=== PATIENT | male | born 1970 | race African-American/Black ===

== ENCOUNTER 2016-05-28 03:00 | Emergency (ER) | payer OTHER ==
--- NOTE | ~2016-05-28 | CT4 ---
[facility] A Service of [facility] & [facility] RADIOLOGY TEXT RESULTS PATIENT: BART OHRAN LOCATION: SED : 74 UNIT #: [id number] AGE: [address]: Gus Coyle MD SEX: M ORDER DR: [id number] [place] [address] [id number] E MR#: [id number] Acc #: [id number] NAME: BART HORAN : 1970 SEX: M STUDY DATE/TIME: 05/28/2016 3:10 UNIT: SED ROOM: STUDY DESCRIPTION: CT Abd and Pelv Wo Cont Attending Physician: Gus Coyle M.D. Ordering Physician: Gus Coyle M.D. Primary Care Physician: Primary Care Physician No MEDICAL IMAGING REPORT This report is preliminary unless electronic signature is present. EXAM CT abdomen and pelvis without contrast INDICATION Left kidney and groin pain radiating to low back for about 1 hour. COMPARISON 04/30/2010. TECHNIQUE Axial 3 mm images were obtained through the abdomen and pelvis without IV or oral contrast. This CT examination was performed with one or more of the following radiation dose reduction techniques: automatic exposure control, adjustment of mA and/or kV according to patient size, and iterative reconstruction. FINDINGS The lung bases are clear. The study is degraded by motion. The liver, gallbladder, spleen, pancreas, adrenal glands and right kidney are normal. There is mild left hydronephrosis and the left ureter is slightly dilated. There are 2 calcifications in the pelvis that are stable from 04/30/2010 and therefore they represent phleboliths. There may be a third calcification representing a distal ureteral stone measuring about 2 mm in diameter. Below that point, the ureter is normal in caliber. The bladder and prostate gland are normal. The aorta is normal in size and the bowel is unremarkable. The bones are unremarkable. IMPRESSION There is clearly mild left hydronephrosis and most of the left ureter is dilated. The study is degraded by motion. Images through the pelvis do show 2 left-sided calcifications that are clearly phleboliths since they were present in 2010. There may be a third calcification in the distal [facility] A Service of [facility] & [facility] RADIOLOGY TEXT RESULTS PATIENT: BART HORAN LOCATION: SED : 74 UNIT #: [id number] AGE: [address]: Gus Coyle MD SEX: M ORDER DR: left ureter representing a 2 mm stone. Otherwise, the study is normal. Dictated by... Shane Saha M.D. THIS IS AN ELECTRONICALLY VERIFIED REPORT Shane Saha M.D. at 05/28/2016 2:21 PM RIC/meera TD: 05/28/2016 06:16 JOB #: [id number] MEDICAL IMAGING REPORT Page 1 of 1
[2016-05-28 02:43] LABS: URINE SOURCE CLEAN CATCH
[2016-05-28 02:45] LABS: URINE APPEARANCE CLEAR; URINE BILIRUBIN NEG (NEG); URINE BLOOD 3+ (NEG); URINE COLOR YELLOW; URINE GLUCOSE NEG (NORM); URINE KETONE NEG (NEG); URINE LEUKOCYTE ESTERASE NEG (NEG); URINE NITRATE NEG (NEG); URINE PH 6.5 (5-8); URINE PROTEIN NEG (NEG); URINE SPECIFIC GRAVITY <=1.005 (1.003-1.035); URINE UROBILINOGEN 0.2 MG/DL (NORM)
[2016-05-28 02:46] LABS: BASOPHIL% 0.4 % (0-2.5); EOSINOPHIL# 0.1 X10e3 (0-0.7); EOSINOPHIL% 1.2 % (0.0-7.0); HEMATOCRIT 42.9 % (38.0-50.0); HEMOGLOBIN 14.4 gm/dL (13.0-16.0); LYMPHOCYTE# 2.5 X10e3 (1.0-3.5); LYMPHOCYTE% 23.2 % (17.0-45.0); MEAN CELL VOLUME 94.8 FL (83-96); MEAN CORPUSCULAR HEMOGLOBIN 31.8 PG (28-34); MEAN CORPUSCULAR HGB CONC 33.6 g/dL (30-36); MEAN PLATELET VOLUME 8.8 FL (6.5-11.5); MONOCYTE# 0.8 X10e3 (0-1.0); MONOCYTE% 7.3 % (3.0-12.0); NEUTROPHIL# 7.3 X10e3 (1.5-7.1); NEUTROPHIL% 67.9 % (40-75); PLATELET COUNT 210 X10e3 (140-420); RED BLOOD COUNT 4.52 X10e (3.90-5.60); RED CELL DISTRIBUTION WIDTH 13.7 % (11.0-15.5); WHITE BLOOD COUNT 10.7 X10e3 (4.0-10.5)
[2016-05-28 02:47] LABS: MICRO INDICATED? YES
[2016-05-28 02:47] LABS: DIFF IND NO
[2016-05-28 02:49] LABS: CULTURE INDICATED? NO; URINE BACTERIA NEG (NEG); URINE MUCUS PRESENT; URINE RBC 100-200 /[HPF] (0-2); URINE SQUAMOUS EPITHELIAL CELL FEW /[HPF]; URINE WBC 0-2 /[HPF] (0-5)
[~2016-05-28 03:00] MED LIST: ALBUTEROL17 GM INH; GUAIFENESIN200 MG PO; NO MEDICATIONS; PREDNISONE PO
[2016-05-28 03:01] LABS: CALCIUM SERUM 9.2 mg/dL (8.4-10.2); GLOM FILT RATE Estimated 106.4 mL/min (>60)
== END 2016-05-28 04:22 | disposition home or self-care (01) ==
LOC: SED 03:00
PROVIDERS: Emergency Medicine
DX: N13.2 Hydronephrosis with renal and ureteral calculous obstruction (principal); F17.210 Nicotine dependence, cigarettes, uncomplicated
CPT/HCPCS: 36415; 74176; 80048; 81003; 85025; 96361; 96374; 96375; 99284; J1885; J2270

== ENCOUNTER 2016-07-07 10:30 | Emergency (ER) | payer OTHER ==
--- NOTE | ~2016-07-07 | CT4 ---
[facility] A Service of [facility] RADIOLOGY TEXT RESULTS PATIENT: BART HORAN LOCATION: [facility] : [birth year] UNIT #: [id number] AGE: [address]: Connie Sharma MD SEX: M ORDER DR: [id number] [place] [id number] [facility]. [place], [place] [address] [id number] E MR#: [id number] Acc #: [id number] NAME: BART HORAN : 1970 SEX: M STUDY DATE/TIME: 07/07/2016 11:28 UNIT: [facility] ROOM: STUDY DESCRIPTION: CT Abd and Pelv Wo Cont Attending Physician: Connie Sharma M.D. Ordering Physician: Connie Sharma M.D. MEDICAL IMAGING REPORT This report is preliminary unless electronic signature is present EXAM CT of the abdomen and pelvis without contrast INDICATIONS Right flank pain for [address] of the abdomen and pelvis performed without contrast. Coronal and sagittal reformatted images were obtained. This CT exam was performed with one or more of the following radiation dose reduction techniques: automatic exposure control, adjustment of mA and/or kV according to patient size, and iterative reconstruction. COMPARISON 05/28/2016. FINDINGS Calcified granuloma left base. The liver is unremarkable. The gallbladder and spleen are unremarkable. There are no renal stones or hydronephrosis. The adrenal glands and pancreas are unremarkable. PELVIS: The appendix is normal. Scattered diverticula within the colon but no diverticulitis. No free fluid. Bone windows are unremarkable. IMPRESSION 1. No acute intraabdominal or pelvic abnormality. 2. No evidence of renal stone. 3. Normal appendix. [facility] A Service of [facility] RADIOLOGY TEXT RESULTS PATIENT: BART HORAN LOCATION: [facility] : 74 UNIT #: [id number] AGE: [address]: Connie Sharma MD SEX: M ORDER DR: Dictated by... Candido Ellis M.D. THIS IS AN ELECTRONICALLY VERIFIED REPORT Candido Ellis M.D. at 07/09/2016 7:49 AM TILA/fabby TD: 07/07/2016 14:59 JOB #: [id number] MEDICAL IMAGING REPORT Page 1 of 1 COPY
[2016-07-07 11:23] LABS: BASOPHIL% 0.4 % (0-2.5); EOSINOPHIL# 0.2 X10e3 (0-0.7); EOSINOPHIL% 2.2 % (0.0-7.0); HEMATOCRIT 44.8 % (38.0-50.0); HEMOGLOBIN 14.8 gm/dL (13.0-16.0); LYMPHOCYTE# 2.8 X10e3 (1.0-3.5); LYMPHOCYTE% 30.9 % (17.0-45.0); MEAN CELL VOLUME 94.2 FL (83-96); MEAN CORPUSCULAR HEMOGLOBIN 31.1 PG (28-34); MEAN PLATELET VOLUME 8.3 FL (6.5-11.5); MONOCYTE# 0.8 X10e3 (0-1.0); MONOCYTE% 8.6 % (3.0-12.0); NEUTROPHIL# 5.2 X10e3 (1.5-7.1); NEUTROPHIL% 57.9 % (40-75); PLATELET COUNT 210 X10e3 (140-420); RED BLOOD COUNT 4.76 X10e (3.90-5.60); RED CELL DISTRIBUTION WIDTH 13.6 % (11.0-15.5); WHITE BLOOD COUNT 8.9 X10e3 (4.0-10.5)
[2016-07-07 11:30] LABS: DIFF IND NO
[2016-07-07 11:53] LABS: BUN/CREATININE RATIO 14.44; CREATININE SERUM 0.9 mg/dL (0.6-1.4); GLOM FILT RATE Estimated 120.8 mL/min (>60); POTASSIUM 4.5 mmol/L (3.5-5.1)
[2016-07-07 12:52] LABS: URINE SOURCE CLEAN CATCH
[2016-07-07 12:59] LABS: URINE APPEARANCE CLEAR; URINE BILIRUBIN NEG (NEG); URINE BLOOD NEG (NEG); URINE COLOR YELLOW; URINE GLUCOSE NEG (NEG); URINE KETONE NEG (NEG); URINE LEUKOCYTE ESTERASE NEG (NEG); URINE NITRATE NEG (NEG); URINE PROTEIN NEG (NEG); URINE SPECIFIC GRAVITY 1.022 (1.003-1.035); URINE UROBILINOGEN 0.2 MG/DL (NEG)
[2016-07-07 13:03] LABS: CULTURE INDICATED? NO
== END 2016-07-07 13:42 | disposition home or self-care (01) ==
LOC: CED 10:30 → SED 11:46 → CED 11:46
PROVIDERS: Emergency Medicine
DX: S39.012A Strain of muscle, fascia and tendon of lower back, initial encounter (principal); I10 Essential (primary) hypertension; X58.XXXA Exposure to other specified factors, initial encounter
CPT/HCPCS: 36415; 74176; 80048; 81003; 85025; 96361; 96374; 96375; 96376; 99284; J1885; J2270; J2405

== ENCOUNTER 2016-07-22 10:21 | Emergency (ER) | payer OTHER ==
[2016-07-22] MEDS ORDERED: MULTIVITAMINS1 EAC4 (10:24)
[2016-07-22] MEDS ORDERED: FISH OIL300 MG PO (10:24)
== END 2016-07-22 11:24 | disposition home or self-care (01) ==
LOC: SED 10:21
DX: M54.32 Sciatica, left side (principal); F17.200 Nicotine dependence, unspecified, uncomplicated; Z87.442 Personal history of urinary calculi
CPT/HCPCS: 99283; J1885

== ENCOUNTER 2016-07-29 08:29 | Emergency (ER) | payer OTHER ==
--- NOTE | ~2016-07-29 | CT4 ---
[facility] A Service of [facility] RADIOLOGY TEXT RESULTS PATIENT: BART HORAN LOCATION: SED : 74 UNIT #: [id number] AGE: [address]: Fredy Guerrero MD SEX: M ORDER DR: [id number] [place] [address] [id number] E MR#: [id number] Acc #: [id number] NAME: BART HORAN : 1970 SEX: M STUDY DATE/TIME: 07/29/2016 9:21 UNIT: SED ROOM: STUDY DESCRIPTION: CT Abd and Pelv Wo Cont Attending Physician: Fredy Guerrero M.D. Ordering Physician: Fredy Guerrero M.D. Primary Care Physician: No Primary Care Physician MEDICAL IMAGING REPORT This report is preliminary unless electronic signature is present. EXAM CT of the abdomen and pelvis without contrast. INDICATIONS Right flank pain since this morning. TECHNIQUE CT of the abdomen and pelvis was performed without contrast. Renal stone protocol. Coronal and sagittal reformatted images were obtained. This CT exam was performed with one or more of the following radiation dose reduction techniques: Automatic exposure control, adjustment of mA and/or kV according to patient size, and iterative reconstruction. COMPARISON Comparison is made with 07/07/16. FINDINGS There is atelectasis in the right base. The liver, gallbladder and spleen are unremarkable. The left kidney is unremarkable. There is very mild right hydronephrosis. There is a punctate calcific density in the proximal/mid right ureter on image 91 which I believe represents a tiny stone. The adrenal glands and pancreas are unremarkable. Pelvis: There is no free fluid. Scattered colonic diverticula. Normal appendix. The remainder of the pelvis is unremarkable. Bone windows are unremarkable. IMPRESSION There is very mild right hydronephrosis and there is a punctate calcific density in the proximal/mid right ureter which I believe represents a tiny stone given the patient's mild hydro and clinical symptoms. [facility] A Service of [facility] RADIOLOGY TEXT RESULTS PATIENT: BART HORAN LOCATION: SED : 74 UNIT #: [id number] AGE: [address]: Fredy Guerrero MD SEX: M ORDER DR: Dictated by... Candido Ellis M.D. THIS IS AN ELECTRONICALLY VERIFIED REPORT Candido Ellis M.D. at 07/29/2016 6:05 PM ARS/bd TD: 07/29/2016 14:13 JOB #: [id number] MEDICAL IMAGING REPORT Page 1 of 1
[~2016-07-29 08:29] MED LIST changes: +FISH OIL300 MG PO; +MULTIVITAMINS1 EAC4
[2016-07-29] MEDS ORDERED: IBUPROFEN (08:34)
[2016-07-29 09:28] LABS: BUN/CREATININE RATIO 17.77; CALCIUM SERUM 8.8 mg/dL (8.4-10.2); CREATININE SERUM 0.9 mg/dL (0.6-1.4); GLOM FILT RATE Estimated 120.8 mL/min (>60); POTASSIUM 3.8 mmol/L (3.5-5.1)
[2016-07-29 11:03] LABS: URINE SOURCE CLEAN CATCH
[2016-07-29 11:04] LABS: MICRO INDICATED? YES; URINE APPEARANCE HAZY; URINE BILIRUBIN NEG (NEG); URINE BLOOD 3+ (NEG); URINE COLOR DK YELLOW; URINE GLUCOSE NEG (NORM); URINE KETONE NEG (NEG); URINE LEUKOCYTE ESTERASE NEG (NEG); URINE NITRATE NEG (NEG); URINE PH 5.5 (5-8); URINE PROTEIN TRACE (NEG); URINE SPECIFIC GRAVITY >=1.030 (1.003-1.035)
[2016-07-29 11:07] LABS: CULTURE INDICATED? YES; URINE BACTERIA NEG (NEG); URINE MUCUS PRESENT; URINE RBC INNUM /[HPF] (0-2); URINE SQUAMOUS EPITHELIAL CELL FEW /[HPF]
== END 2016-07-29 11:14 | disposition home or self-care (01) ==
LOC: SED 08:29
PROVIDERS: Emergency Medicine
DX: N13.2 Hydronephrosis with renal and ureteral calculous obstruction (principal); F17.210 Nicotine dependence, cigarettes, uncomplicated
CPT/HCPCS: 74176; 80048; 81003; 87086; 96374; 96375; 99284; J1170; J1885; J2405; J2550

== ENCOUNTER 2016-09-02 03:57 | Emergency (ER) | payer OTHER ==
[~2016-09-02] VITALS: Ht 185.4 cm; Wt 145.1 kg
[~2016-09-02 03:57] MED LIST changes: +IBUPROFEN
[2016-09-02] MEDS ORDERED: NO MEDICATIONS (04:03)
[2016-09-02 04:25] LABS: BASOPHIL# 0.1 X10e3 (0-0.3); BASOPHIL% 0.6 % (0-2.5); EOSINOPHIL# 0.3 X10e3 (0-0.7); EOSINOPHIL% 2.7 % (0.0-7.0); HEMATOCRIT 42.6 % (38.0-50.0); HEMOGLOBIN 14.3 gm/dL (13.0-16.0); LYMPHOCYTE# 4.3 X10e3 (1.0-3.5); LYMPHOCYTE% 44.5 % (17.0-45.0); MEAN CELL VOLUME 94.2 FL (83-96); MEAN CORPUSCULAR HEMOGLOBIN 31.6 PG (28-34); MEAN CORPUSCULAR HGB CONC 33.6 g/dL (30-36); MEAN PLATELET VOLUME 8.8 FL (6.5-11.5); MONOCYTE# 0.8 X10e3 (0-1.0); MONOCYTE% 8.7 % (3.0-12.0); NEUTROPHIL# 4.2 X10e3 (1.5-7.1); NEUTROPHIL% 43.5 % (40-75); PLATELET COUNT 219 X10e3 (140-420); RED BLOOD COUNT 4.52 X10e (3.90-5.60); RED CELL DISTRIBUTION WIDTH 13.4 % (11.0-15.5); WHITE BLOOD COUNT 9.7 X10e3 (4.0-10.5)
[2016-09-02 04:27] LABS: DIFF IND NO
[2016-09-02 04:38] LABS: GLOM FILT RATE Estimated 106.4 mL/min (>60); POTASSIUM 3.8 mmol/L (3.5-5.1)
[2016-09-02 04:48] LABS: URINE SOURCE CLEAN CATCH
[2016-09-02 04:50] LABS: URINE APPEARANCE CLEAR; URINE BILIRUBIN NEG (NEG); URINE BLOOD 3+ (NEG); URINE COLOR YELLOW; URINE GLUCOSE NEG (NORM); URINE KETONE NEG (NEG); URINE LEUKOCYTE ESTERASE NEG (NEG); URINE NITRATE NEG (NEG); URINE PH 5.5 (5-8); URINE PROTEIN NEG (NEG); URINE SPECIFIC GRAVITY 1.025 (1.003-1.035); URINE UROBILINOGEN 0.2 MG/DL (NORM)
[2016-09-02 04:54] LABS: MICRO INDICATED? YES
[2016-09-02 05:00] LABS: CULTURE INDICATED? NO; URINE BACTERIA NEG (NEG); URINE CRYSTALS CALCIUM OXALATE /[HPF]; URINE MUCUS PRESENT; URINE RBC INNUM /[HPF] (0-2); URINE SQUAMOUS EPITHELIAL CELL FEW /[HPF]
== END 2016-09-02 05:26 | disposition home or self-care (01) ==
LOC: SED 03:57
PROVIDERS: Emergency Medicine
DX: N20.1 Calculus of ureter (principal); F17.200 Nicotine dependence, unspecified, uncomplicated; Z87.442 Personal history of urinary calculi
CPT/HCPCS: 36415; 80048; 81003; 85025; 96361; 96374; 96375; 99284; J1170; J1885; J2405